=== PATIENT | male | born 1960 | race Two or more races ===

== ENCOUNTER → 2020-07-08 15:40 | Outpatient (CLI) | payer OTHER | END | disposition home or self-care (01) | LOC: LAB 15:40 | PROVIDERS: ATTEND Internal Medicine Gastroenterology | DX: B18.2 Chronic viral hepatitis C (principal); B19.10 Unspecified viral hepatitis B without hepatic coma ==

== ENCOUNTER 2020-09-11 09:55 | Outpatient (CLI) | payer OTHER ==
[2020-09-14] MEDS ORDERED: MULTIPLE VITAM1 EAC2 PO (14:17)
== END 2020-09-11 10:12 | disposition home or self-care (01) ==
LOC: LAB 09:55
PROVIDERS: ATTEND Surgery
DX: R19.5 Other fecal abnormalities (principal); K64.2 Third degree hemorrhoids

== ENCOUNTER 2020-09-21 08:21 | Day surgery (SDC) | payer OTHER ==
[~2020-09-21 08:21] MED LIST: MULTIPLE VITAM1 EAC2 PO
[2020-09-21] MEDS ORDERED: PERCOCET 5-3251 EACH PO (11:10)
[2020-09-21] MEDS ORDERED: RECTICARE30 GM TOP (11:11)
[2020-09-21] MEDS ORDERED: DERMOPLAST PAIN78 GM TOP (11:12)
== END 2020-09-21 16:00 | disposition home or self-care (01) ==
LOC: CIR.AMB 08:21
PROVIDERS: ATTEND Surgery
DX: K64.8 Other hemorrhoids (principal); Z20.822 Contact with and (suspected) exposure to COVID-19